=== PATIENT | male | born 1950 | race African-American/Black ===

== ENCOUNTER 2017-06-21 06:02 | Inpatient (IN) | payer MEDICARE, MEDICAID ==
[~2017-06-21] VITALS: Ht 180.3 cm; Wt 87.3 kg
[~2017-06-21 06:02] MED LIST: APRESOLINE 25MG25 MG PO; ASPIRIN 32325 MG/TAB PO; ATARAX25 MG PO; CARAFATE S1 GM/10 ML PO; CEPHALEXIN500 M1 PO; CIPRO 500MG TA500 MG PO; FERROUS SULFATE65 MG PO; FOLIC ACID0.8 MG PO; FOLIC ACID800 MCG PO; HCTZ 25MG25 MG PO; LEVSIN0.125 M1 PO; LIPITOR20 MG PO; LISINOPRIL; LISINOPRIL/HCTZ1 TA1 PO; LISINOPRIL/HCTZ1 TA2 PO; LOPRESSOR 225 MG/TAB PO; NEURONTIN400 MG/CAP PO; NEURONTIN600 MG/TAB PO; NITROSTAT0.4 MG SL; NITROSTAT0.4 MG/TAB SL; NORCO 325 MG-51 TAB PO; NORVASC 10MG10 MG PO; PRILOSEC 20MG20 MG PO; PRILOSEC10 MG PO; PRINZIDE 12.5 M1 TA1 PO; PROMETHAZINE25 M1 PO; PYRIDIUM 100MG100 MG PO; RESTORIL15 MG PO; ZOFRAN 4MG T4 MG/TAB PO
[2017-06-21 06:35] LABS: BASO % 0.3 % (0.0-2.0); EOS # 0.1 (0.0-0.7); EOS % 0.9 % (0-4.0); GRAN # 7.7 (1.4-6.5); GRAN % 64.6 % (42.2-75.2); HEMATOCRIT 41.6 % (42.0-52.0); HEMOGLOBIN 13.3 g/dl (13.5-18.0); LYMPH # 2.8 (1.2-3.4); LYMPH % 22.9 % (20.0-51.0); MEAN CELL VOLUME 74 fl (80.0-100.0); MEAN CORPUSCULAR HEMOGLOBIN 24 pg (27.0-31.0); MEAN CORPUSCULAR HGB CONC 32 g/dl (33.0-37.0); MEAN PLATELET VOLUME 11.8 fl (7.4-10.4); MONO # 1.3 (0.1-0.6); MONO % 10.9 % (1.7-9.3); PLATELET COUNT 170 K/mm3 (130-400); RED BLOOD COUNT 5.61 M/mm3 (4.20-5.60); REDCELL DISTRIBUTION WIDTH-CV 16.7 % (11.5-14.5)
[2017-06-21 06:47] LABS: ALANINE AMINOTRANSFERASE 26 U/L (21-72); ALBUMIN 4.4 gm/dL (3.5-5.0); ALKALINE PHOSPHATASE 82 U/L (50-136); ANION GAP 11 mmol/L (7-16); AST,SGOT 17 U/L (15-37); BILIRUBIN,TOTAL 0.8 mg/dL (0.0-1.0); BLOOD UREA NITROGEN 8 mg/dL (9-20); CALCIUM 9.3 mg/dL (8.4-10.2); CARBON DIOXIDE 24 mmol/L (22-30); CHLORIDE 104 mmol/L (98-107); CREATININE, serum 0.85 mg/dL (0.66-1.25); GLUCOSE 139 mg/dL (74-106); POTASSIUM 3.5 mmol/L (3.4-5.0); SODIUM 139 mmol/L (137-145); TOTAL PROTEIN 7.6 gm/dL (6.4-8.2)
[2017-06-21 06:56] LABS: INFLUENZA A NEGATIVE; INFLUENZA B NEGATIVE
[2017-06-21 06:58] LABS: TROPONIN-I < 0.012 ng/mL (0.000-0.034)
[2017-06-21 08:52] VITALS: BP 138/73; PULSE 85; TEMP 98.1
[2017-06-21] MEDS ORDERED: LAMISIL250 M1 (09:38)
[2017-06-21 12:26] VITALS: BP 131/75; PULSE 74; TEMP 98.3
[2017-06-21 16:31] VITALS: BP 133/75; PULSE 75; TEMP 97.7
[2017-06-21 19:51] VITALS: BP 129/77; PULSE 68; TEMP 98.5
[2017-06-22] VITALS (7 sets, daily range): BP systolic 126–160; BP diastolic 64–78; PULSE 63–89; TEMP 97.7–98.7
[2017-06-22 08:00] LABS: BASO % 0.1 % (0.0-2.0); GRAN # 10.6 (1.4-6.5); GRAN % 86.1 % (42.2-75.2); HEMATOCRIT 40.1 % (42.0-52.0); HEMOGLOBIN 12.6 g/dl (13.5-18.0); LYMPH # 1.2 (1.2-3.4); LYMPH % 9.5 % (20.0-51.0); MEAN CELL VOLUME 74 fl (80.0-100.0); MEAN CORPUSCULAR HEMOGLOBIN 23 pg (27.0-31.0); MEAN CORPUSCULAR HGB CONC 31 g/dl (33.0-37.0); MEAN PLATELET VOLUME 10.9 fl (7.4-10.4); MONO # 0.5 (0.1-0.6); PLATELET COUNT 160 K/mm3 (130-400); RED BLOOD COUNT 5.45 M/mm3 (4.20-5.60); REDCELL DISTRIBUTION WIDTH-CV 16.6 % (11.5-14.5)
[2017-06-22 08:03] LABS: CALCIUM 9.4 mg/dL (8.4-10.2); CREATININE, serum 0.78 mg/dL (0.66-1.25); POTASSIUM 4.1 mmol/L (3.4-5.0)
[2017-06-23 04:18] VITALS: BP 167/80; PULSE 74; TEMP 98.2
[2017-06-23 07:44] VITALS: BP 128/75; PULSE 66; TEMP 98.7
[2017-06-23 11:17] VITALS: BP 122/65; PULSE 75; TEMP 98.4
[2017-06-23 15:46] VITALS: BP 141/69; PULSE 71; TEMP 97.8
[2017-06-23 21:44] VITALS: BP 136/76; PULSE 65; TEMP 98.1
[2017-06-24 00:37] VITALS: BP 138/84; PULSE 57; TEMP 97.4
[2017-06-24 04:48] VITALS: BP 123/67; PULSE 57; TEMP 98
[2017-06-24 05:58] LABS: BASO % 0.1 % (0.0-2.0); GRAN # 9.8 (1.4-6.5); GRAN % 84.6 % (42.2-75.2); HEMATOCRIT 37.7 % (42.0-52.0); LYMPH # 1.3 (1.2-3.4); LYMPH % 11.2 % (20.0-51.0); MEAN CELL VOLUME 75 fl (80.0-100.0); MEAN CORPUSCULAR HEMOGLOBIN 24 pg (27.0-31.0); MEAN CORPUSCULAR HGB CONC 32 g/dl (33.0-37.0); MEAN PLATELET VOLUME 11.4 fl (7.4-10.4); MONO # 0.4 (0.1-0.6); MONO % 3.1 % (1.7-9.3); PLATELET COUNT 182 K/mm3 (130-400); RED BLOOD COUNT 5.06 M/mm3 (4.20-5.60); REDCELL DISTRIBUTION WIDTH-CV 16.8 % (11.5-14.5)
[2017-06-24 06:08] LABS: CREATININE, serum 0.8 mg/dL (0.66-1.25); POTASSIUM 4.1 mmol/L (3.4-5.0)
[2017-06-24 07:24] VITALS: BP 145/88; PULSE 55; TEMP 97.5
[2017-06-24 11:21] VITALS: BP 139/73; PULSE 66; TEMP 98.3
[2017-06-24 16:10] VITALS: BP 146/84; PULSE 76; TEMP 97.7
[2017-06-24 19:26] VITALS: BP 145/78; PULSE 75; TEMP 97.4
[2017-06-25 04:44] VITALS: BP 142/82; PULSE 55; TEMP 98.2
[2017-06-25 07:27] VITALS: BP 131/90; PULSE 64; TEMP 98.2
[2017-06-25] MEDS ORDERED: PROAIR HFA0.09 MG/AC IH (09:57)
[2017-06-25] MEDS ORDERED: TESSALON P100 MG/CAP PO (09:58)
[2017-06-25 11:26] VITALS: BP 151/92
[2017-06-25 12:25] VITALS: BP 124/70; PULSE 69; TEMP 99.2
== END 2017-06-25 17:39 | disposition home or self-care (01) | DRG 192 ==
LOC: COL.ER 06:02 → MEDICAL 07:31
PROVIDERS: Emergency Medicine; Internal Medicine; Physician Assistant
DX: J44.1 Chronic obstructive pulmonary disease with (acute) exacerbation (principal); I25.10 Atherosclerotic heart disease of native coronary artery without angina pectoris; Z87.891 Personal history of nicotine dependence; Z85.110 Personal history of malignant carcinoid tumor of bronchus and lung; Z95.0 Presence of cardiac pacemaker
CPT/HCPCS: 99222-AI; 99232-AI; 99238; J0456; J1644; J1956; J2920; J7030; J7050; J7512

== ENCOUNTER → 2018-03-10 | Outpatient (CLI) | payer MEDICARE, MEDICAID ==
[~2018-03-10] MED LIST changes: +ANORO IH; +FERRO-TIME325 MG PO; -FERROUS SULFATE65 MG PO; +LAMISIL250 M1; +LIPITOR 40MG TA40 MG PO; +LOPRESSOR 550 MG/TAB PO; +LOPRESSOR100 MG PO; +PROAIR HFA0.09 MG/AC IH; +TESSALON P100 MG/CAP PO; +TOPROL XL100 MG PO
== END ==
LOC: COL.RAD 10:05
DX: C34.11 Malignant neoplasm of upper lobe, right bronchus or lung (principal); I10 Essential (primary) hypertension; N28.1 Cyst of kidney, acquired

== ENCOUNTER → 2018-06-01 | Outpatient (CLI) | payer MEDICARE, MEDICAID ==
[2018-06-01 13:56] LABS: HEMATOCRIT 35.6 % (42.0-52.0); HEMOGLOBIN 11.2 g/dl (13.5-18.0); MEAN CELL VOLUME 75 fl (80.0-100.0); MEAN CORPUSCULAR HEMOGLOBIN 24 pg (27.0-31.0); MEAN CORPUSCULAR HGB CONC 32 g/dl (33.0-37.0); MEAN PLATELET VOLUME 10.5 fl (7.4-10.4); PLATELET COUNT 193 K/mm3 (130-400); RED BLOOD COUNT 4.75 M/mm3 (4.20-5.60); REDCELL DISTRIBUTION WIDTH-CV 19.2 % (11.5-14.5)
[2018-06-01 14:04] LABS: ALBUMIN 3.6 gm/dL (3.5-5.0); BILIRUBIN,TOTAL 0.4 mg/dL (0.0-1.0); CREATININE, serum 0.76 mg/dL (0.66-1.25); POTASSIUM 3.8 mmol/L (3.4-5.0); TOTAL PROTEIN 6.5 gm/dL (6.4-8.2)
[2018-06-01 14:11] LABS: BAND 4 % (0-10); EOSINOPHIL 4 % (0-4); NEUTROPHILS 70 % (42.0-75.2)
[2018-06-01 14:12] LABS: LYMPHOCYTE 19 % (20.0-51.0); PLATELET ESTIMATE NORMAL (NORMAL)
[2018-06-01 14:15] LABS: ANISOCYTOSIS 2+; MICROCYTOSIS 1+
== END ==
LOC: COL.RAD 05-31 14:00
PROVIDERS: Internal Medicine Medical Oncology
DX: C34.11 Malignant neoplasm of upper lobe, right bronchus or lung (principal)
CPT/HCPCS: A9503; Q9967